=== PATIENT | male | born 1950 | race Caucasian/White ===

== ENCOUNTER 2019-08-18 09:42 | Emergency (ER) | payer OTHER ==
[2019-08-18 10:10] LABS: BASOPHILS % (AUTO) 0.6 % (0.0-5.0); EOSINOPHILS % (AUTO) 2.3 % (0.0-8.0); HEMATOCRIT 49.7 % (42-54); LYMPHOCYTES % (AUTO) 12.5 % (21.0-51.0); MEAN CORPUSCULAR HEMOGLOBIN 31.1 pg (27.0-33.0); MEAN CORPUSCULAR HGB CONC 34.8 g/dL (32.0-36.0); MEAN CORPUSCULAR VOLUME 89.2 fL (79-99); NEUTROPHILS % (AUTO) 77.1 % (40.0-77.0); PLATELET COUNT (AUTO) 238 K/uL (130-400); RED BLOOD CELL COUNT(AUTO) 5.57 MIL/uL (4.50-6.20); RED CELL DISTRIBUTION WIDTH 12.8 % (11.0-15.5); WHITE BLOOD COUNT (AUTO) 13.9 K/uL (4.8-10.8)
[2019-08-18 10:20] LABS: INR 1.03 (0.85-1.15); PARTIAL THROMBOPLASTIN TIME 25.4 SEC (26.3-35.5); PROTHROMBIN TIME 10.8 SEC (9.6-11.6)
[2019-08-18 10:21] LABS: CREATININE 1.3 mg/dL (0.5-1.5); POTASSIUM 3.7 mmol/L (3.5-5.1)
[2019-08-18 10:26] LABS: ALBUMIN 4.1 g/dL (3.5-5.0); BILIRUBIN,TOTAL 0.8 mg/dL (0.2-1.0); TOTAL PROTEIN, SERUM 8.2 g/dL (6.0-8.3)
[2019-08-18] MEDS ORDERED: IPRATROPIUM/ALBUTEROL SULFATE 3 ML SOLUTION IH ONE (10:54)
[2019-08-18] MEDS ORDERED: PREDNISONE 20 MG TABLET ONE (11:57)
[2019-08-18] MEDS ORDERED: CEFTRIAXONE SODIUM 1 GM ONE (11:57)
[2019-08-18] MEDS ORDERED: INSULIN HUMULIN R 100 UNIT/ML 3ML ONE (11:58)
== END 2019-08-18 12:44 | disposition home or self-care (01) ==
LOC: EDH 09:42
DX: J20.9 Acute bronchitis, unspecified (principal); R06.00 Dyspnea, unspecified; R05 Cough; D72.829 Elevated white blood cell count, unspecified; I10 Essential (primary) hypertension; E11.9 Type 2 diabetes mellitus without complications; E78.00 Pure hypercholesterolemia, unspecified; M19.90 Unspecified osteoarthritis, unspecified site; Z90.49 Acquired absence of other specified parts of digestive tract
CPT/HCPCS: 36415; 71045; 80053; 82550; 84484; 85025; 85378; 85610; 85730; 93005; 94640; 96374; 96375; 99285; J0696; J1815